=== PATIENT | female | born 1965 | race Caucasian/White ===

== ENCOUNTER 2016-07-08 19:10 | Observation (INO) | payer OTHER ==
[~2016-07-08] VITALS: Ht 167.6 cm; Wt 95.0 kg
[~2016-07-08 19:10] MED LIST: ALLERGY MED; CEFU1TAB43 PO; NAPR-503 PO; ZITH250T PO
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
[2016-07-08] MEDS ORDERED: SODIUM CHLORIDE 0.9% FLUSH 5 ML FLUSH IVF PRN ×2 (19:30→22:15)
[2016-07-08] MEDS ORDERED: TETANUS/DIPHTHERIA TOXOID ADULT 0.5 ML VIAL IM ONE (19:30)
[2016-07-08] MEDS ORDERED: MORPHINE SULFATE 4 MG/ML INJ IV ONE (19:30)
[2016-07-08 19:37] VITALS: BP 144/91; PULSE 85; RESP 16; TEMP 98.2; O2SAT 100
[2016-07-08 19:39] VITALS: RESP 16
[2016-07-08] MEDS ORDERED: ATEN25TA PO (19:44)
[2016-07-08] MEDS ORDERED: ONDANSETRON HCL 4 MG/2 ML VIAL ONE (19:58)
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
[2016-07-08] MEDS ORDERED: ONDANSETRON HCL 4 MG/2 ML VIAL IV PUSH ONE (20:15)
[2016-07-08 20:17] LABS: AUTOMATED NEUTROPHIL # 4.7 TH/MM3 (1.8-7.7); BASOPHIL % 0.4 % (0.0-2.0); EOSINOPHIL # 0.2 TH/MM3 (0-0.4); EOSINOPHIL % 2.9 % (0.0-4.0); HEMATOCRIT 41.7 % (35.0-46.0); HEMO FLAGS DIFF FINAL; LYMPH % 25.7 % (9.0-44.0); LYMPHOCYTE # 1.9 TH/MM3 (1.0-4.8); MEAN CELL VOLUME 89.7 FL (80.0-100.0); MEAN CORPUSCULAR HEMOGLOBIN 30.4 PG (27.0-34.0); MEAN CORPUSCULAR HGB CONC 33.9 % (32.0-36.0); MONO % 7.1 % (0.0-8.0); NEUT % 63.9 % (16.0-70.0); PLATELET COUNT 203 TH/MM3 (150-450); RED BLOOD COUNT 4.65 MIL/MM3 (4.00-5.30); RED CELL DISTRIBUTION WIDTH 13.3 % (11.6-17.2); WHITE BLOOD COUNT 7.4 TH/MM3 (4.0-11.0)
[2016-07-08 20:22] LABS: APTT (PATIENT) 25.9 SEC (24.3-30.1); PROTHROMBIN TIME - PATIENT 10.7 SEC (9.8-11.6)
[2016-07-08 20:25] LABS: ANION GAP 8 MEQ/L (5-15); AST (GOT) 41 U/L (15-37); BICARBONATE 23.8 MEQ/L (21.0-32.0); BLOOD UREA NITROGEN 13 MG/DL (7-18); CHLORIDE 110 MEQ/L (98-107); GLOMERULAR FILTRATION RATE 98 ML/MIN (>89); POTASSIUM 3.4 MEQ/L (3.5-5.1); SODIUM (NA) 142 MEQ/L (136-145)
[2016-07-08 20:30] LABS: ALKALINE PHOSPHATASE 93 U/L (45-117); ALT (GPT) 53 U/L (10-53); BETA HCG QUANT LESS THAN 1 MIU/ML (0-5); TOTAL BILIRUBIN ADULT 0.5 MG/DL (0.2-1.0)
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
[2016-07-08 21:11] VITALS: BP 132/81; PULSE 92; RESP 18; O2SAT 100
[2016-07-08] MEDS ORDERED: IODIXANOL 320 MG/ML 10 ML VIAL (for Rad CT) IV ONE (21:15)
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
[2016-07-08] MEDS ORDERED: CYCLOBENZAPRINE HCL 10 MG TAB PO ONE (22:00)
[2016-07-08 23:42] VITALS: O2SAT 100
[2016-07-09 00:03] VITALS: BP 139/93; PULSE 62; RESP 18; TEMP 98.8; O2SAT 96
[2016-07-09 07:22] VITALS: BP 108/63; PULSE 63; RESP 18; TEMP 97.6; O2SAT 97
[2016-07-09] MEDS ORDERED: ONDANSETRON HCL 4 MG/2 ML VIAL IV PRN (07:45)
[2016-07-09] MEDS ORDERED: ENALAPRILAT 1.25 MG/ML VIAL IV PRN (07:45)
[2016-07-09] MEDS ORDERED: SODIUM CHLORIDE 0.9% FLUSH 5 ML FLUSH IVF PRN (07:45)
[2016-07-09] MEDS ORDERED: PANTOPRAZOLE SODIUM 40 MG VIAL IVP SCH (07:45)
[2016-07-09] MEDS ORDERED: ACETAMINOPHEN 325 MG TAB PO PRN (07:45)
[2016-07-09] MEDS ORDERED: BACITRACIN TOP OINT 15 GM TUBE TOP SCH (09:00)
[2016-07-09] MEDS ORDERED: SODIUM CHLORIDE 0.9% FLUSH 5 ML FLUSH IVF SCH (09:00)
[2016-07-09] MEDS ORDERED: MAGNESIUM HYDROXIDE SUSP 30 ML CUP PO SCH (09:00)
[2016-07-09] MEDS ORDERED: DOCUSATE SODIUM 100 MG CAP PO SCH (09:00)
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
[2016-07-09] MEDS: METHOCARBAMOL 500 MG TAB PO SCH ×2 (09:40→14:04)
--- NOTE | 2016-07-09 10:35 | RADRPT ---
EXAM DATE/TIME: 07/09/2016 09:52 [place] COMPARISON: CT BRAIN W/O CONTRAST, July 08, 2016, 20:53. INDICATIONS : Follow up bleed. RADIATION DOSE: 56.78 CTDIvol (mGy) MEDICAL HISTORY : Hypertension. SURGICAL HISTORY : None. ENCOUNTER: Subsequent ACUITY: 2 days PAIN SCALE: 4/10 LOCATION: cranial TECHNIQUE: Multiple contiguous axial images were obtained of the head. Using automated exposure control and adj ustment of the mA and/or kV according to patient size, radiation dose was kept as low as reasonably a chievable to obtain optimal diagnostic quality images. FINDINGS: CEREBRUM: Punctate high-density right parafalcine location again seen. The ventricles are normal for age. No e vidence of midline shift, mass lesion, new hemorrhage or acute infarction. No extra-axial fluid michele ections are seen. POSTERIOR FOSSA: The cerebellum and brainstem are intact. The 4th ventricle is midline. The cerebellopontine angle i s unremarkable. EXTRACRANIAL: The visualized portion of the orbits is intact. SKULL: The calvaria is intact. No evidence of skull fracture. CONCLUSION: Punctate high-density right parafalcine location again seen and unchanged. No new abnormality. Papo Villasenor MD on July 09, 2016 at 10:26 Board Certified Radiologist. This report was verified electronically.
[2016-07-09 12:20] VITALS: BP 123/89; PULSE 70; RESP 18; TEMP 97.5; O2SAT 95
[2016-07-09] MEDS ORDERED: NORC5TAB PO (12:40)
[2016-07-09] MEDS ORDERED: ACETAMINOPHEN/HYDROcodone 325 MG/5 MG TAB PO PRN ×2 (12:45)
[2016-07-09] MEDS ORDERED: ATENOLOL 25 MG TAB PO SCH (13:15)
[2016-07-09 15:50] VITALS: O2SAT 95
[2016-07-09 16:14] VITALS: BP 111/73; PULSE 70; RESP 18; TEMP 97.7; O2SAT 95
[2016-07-09] MEDS ORDERED: METH500T3 PO (16:41)
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
== END 2016-07-09 18:47 | disposition home or self-care (01) ==
LOC: NEPA 19:10 → NEDA 22:18 → NEPGCP 23:59 → NEDA 07-09 01:33
PROVIDERS: ADMIT Surgery; ATTEND Surgery
DX: S09.90XA Unspecified injury of head, initial encounter (principal); M54.5 Low back pain; M54.2 Cervicalgia; M25.572 Pain in left ankle and joints of left foot; M25.562 Pain in left knee; V29.9XXA Motorcycle rider (driver) (passenger) injured in unspecified traffic accident, initial encounter; J45.909 Unspecified asthma, uncomplicated; I10 Essential (primary) hypertension; F17.210 Nicotine dependence, cigarettes, uncomplicated
CPT/HCPCS: 70450; 71260; 72125; 72128; 72131; 73564; 73590; 73610; 74177; 80053; 84702; 85025; 85610; 85730; 86850; 86900; 86901; 90471; 90714; 94150; 96374; 97162; 99285; C9113; G0378; G8987; G8988; J2270; J2405; Q9967